=== PATIENT | male | born 1940 | race Caucasian/White ===

== ENCOUNTER 2019-09-07 06:24 | Day surgery (SDC) | payer MEDICARE, OTHER ==
[2019-09-07] MEDS ORDERED: Lactated Ringers 1,000 ML IV SCH (07:00)
[2019-09-07] MEDS ORDERED: Propofol 200 MG/20 ML SDV ONE ×2 (07:22→08:43)
[2019-09-07] MEDS ORDERED: fentaNYL 100 MCG/2 ML SDV ONE (07:22)
[2019-09-07 09:28] VITALS: BP 135/67; PULSE 65
--- NOTE | 2019-09-07 11:17 | OR ---
PREOPERATIVE DIAGNOSIS: History of colon polyps. POSTOPERATIVE DIAGNOSIS: Colon polyps. PROCEDURE: Colonoscopy with forceps polypectomies. ANESTHESIA: Monitored anesthesia care. ESTIMATED BLOOD LOSS: Nil. FINDINGS: Adenomatous colon polyp at 70 cm, adenomatous colon polyps x4 at 25 cm. DETAILS OF PROCEDURE: After obtaining informed consent, the patient was brought to the operating room and placed under monitored anesthesia care. A time-out was called, and a well-lubricated flexible coloscope equipped with Endocuff was advanced all the way to the cecum with ease. The cecum was identified with a photo of the ileocecal valve and appendiceal orifice. We then removed the scope fully over 10 minutes and found the above polyps which were removed with biopsy forceps. The colonoscope was then retroflexed in the rectum to reveal several small internal hemorrhoids. The patient tolerated the procedure well. CJM: 09/07/2019 09:45:52 MODL: 09/07/2019 11:10:30 /[id number]
== END 2019-09-07 10:10 | disposition home or self-care (01) ==
LOC: VM.SDS 06:24
PROVIDERS: ATTEND Surgery
DX: Z12.11 Encounter for screening for malignant neoplasm of colon (principal); D12.4 Benign neoplasm of descending colon; D12.5 Benign neoplasm of sigmoid colon; K64.8 Other hemorrhoids; E78.5 Hyperlipidemia, unspecified; I10 Essential (primary) hypertension; Z87.891 Personal history of nicotine dependence; Z79.82 Long term (current) use of aspirin; Z79.899 Other long term (current) drug therapy
CPT/HCPCS: 00811; 45380; J2704; J3010; J7120

== ENCOUNTER 2022-10-10 08:11 | Day surgery (SDC) | payer MEDICARE, OTHER ==
[~2022-10-10 08:11] MED LIST: Lactated Ringers 1,000 ML IV SCH
[2022-10-10] MEDS ORDERED: Propofol 200 MG/20 ML SDV ONE (09:11)
[2022-10-10] MEDS ORDERED: fentaNYL 100 MCG/2 ML SDV ONE (09:11)
[2022-10-10 10:14] VITALS: BP 165/69; PULSE 61
== END 2022-10-10 10:55 | disposition home or self-care (01) ==
LOC: VM.SDS 08:11
PROVIDERS: ATTEND Student in an Organized Health Care Education/Training Program
DX: Z12.11 Encounter for screening for malignant neoplasm of colon (principal); D12.2 Benign neoplasm of ascending colon; D12.0 Benign neoplasm of cecum; D12.5 Benign neoplasm of sigmoid colon; D12.3 Benign neoplasm of transverse colon; I10 Essential (primary) hypertension; E78.5 Hyperlipidemia, unspecified; Z86.010 Personal history of colon polyps; Z98.890 Other specified postprocedural states; Z96.642 Presence of left artificial hip joint; Z79.899 Other long term (current) drug therapy; Z90.49 Acquired absence of other specified parts of digestive tract; Z87.891 Personal history of nicotine dependence
CPT/HCPCS: 00811; 88305; J2704; J3010; J7120